=== PATIENT | female | born 1945 | race Hispanic/Latino ===

== ENCOUNTER 2018-06-26 09:19 | Outpatient (CLI) | payer MEDICARE | END 2018-06-26 09:20 | disposition home or self-care (01) | LOC: LAB 09:19 | PROVIDERS: ATTEND Internal Medicine | DX: E11.9 Type 2 diabetes mellitus without complications (principal); I10 Essential (primary) hypertension; E53.8 Deficiency of other specified B group vitamins; R53.1 Weakness; E78.5 Hyperlipidemia, unspecified; E78.00 Pure hypercholesterolemia, unspecified | CPT/HCPCS: 36415; 82607; 83036 ==

== ENCOUNTER 2018-11-18 08:48 | Outpatient (CLI) | payer MEDICARE ==
[2018-11-18 12:08] LABS: Chol/HDL Ratio 2.37 %
[2018-11-20 10:54] LABS: Vitamin D, 25-OH, D2 <4 ng/mL
== END 2018-11-18 08:49 | disposition home or self-care (01) ==
LOC: LAB 08:48
PROVIDERS: ATTEND Internal Medicine
DX: E11.9 Type 2 diabetes mellitus without complications (principal); E56.9 Vitamin deficiency, unspecified; E78.00 Pure hypercholesterolemia, unspecified; I10 Essential (primary) hypertension
CPT/HCPCS: 36415; 80061; 82306; 82607; 83036

== ENCOUNTER 2020-02-12 12:26 | Inpatient (IN) | payer MEDICARE ==
--- NOTE | 2020-02-12 13:26 | Event Note ---
ED Screening Note Date of service: 02/12/20 Time: 13:22 ED Screening Note: 74-year-old female presents to the emergency room for acute right lower quadrant abdominal pain with nausea no vomiting x3 days with pain getting worse. Patient denies any urinary symptoms. Denies any fever chills. This initial assessment/diagnostic orders/clinical plan/treatment(s) is/are subject to change based on patients health status, clinical progression and re- assessment by fellow clinical providers in the ED. Further treatment and workup at subsequent clinical providers discretion. Patient/guardian urged not to elope from the ED as their condition may be serious if not clinically assessed and managed. Initial orders include:
[2020-02-12 14:36] LABS: Basophils % (Auto) 0.2 % (0.0-1.8); Eosinophils # (Auto) 0.1 K/mm3 (0.0-0.4); Eosinophils % (Auto) 0.5 % (0.0-4.3); Hematocrit 35.4 % (30.3-42.9); Hemoglobin 12.3 gm/dl (10.1-14.3); Lymphocytes # (Auto) 1.9 K/mm3 (1.2-5.4); Lymphocytes % (Auto) 11.6 % (13.4-35.0); Mean Corpuscular HGB Conc 35 % (30-34); Mean Corpuscular Volume 91 fl (79-97); Monocytes # (Auto) 1.2 K/mm3 (0.0-0.8); Monocytes % (Auto) 7.5 % (0.0-7.3); Platelet Count 227 K/mm3 (140-440)
[2020-02-12 14:47] LABS: Alanine Aminotransferase 16 units/L (7-56); Albumin 3.9 g/dL (3.9-5); BUN/Creatinine Ratio 20; Blood Urea Nitrogen 16 mg/dL (7-17); Calcium 9.9 mg/dL (8.4-10.2); Hemolysis Index 15
[2020-02-12 14:47] LABS: HCG Qualitative,Urine Negative (Negative)
[2020-02-12] MEDS ORDERED: ONDANSETRON 4 MG/2 ML INJ IV ONE (14:54)
[2020-02-12] MEDS ORDERED: MORPHINE 4 MG/1 ML INJ IV ONE (14:54)
[2020-02-12] MEDS ORDERED: SODIUM CHLORIDE 0.9% 1000 ML 1,000 ML IV ONE (14:54)
--- NOTE | 2020-02-12 17:24 | Cat Scan Report ---
CT ABDOMEN AND PELVIS WITH CONTRAST INDICATION / CLINICAL INFORMATION: Right lower quadrant pain TECHNIQUE: Axial CT images were obtained through the abdomen and pelvis after IV contrast. All CT sc ans at this location are performed using CT dose reduction for ALARA by means of automated exposure c ontrol. COMPARISON: None available. FINDINGS: LOWER CHEST: Unremarkable LIVER: Unremarkable GALLBLADDER/BILIARY TREE: Cholecystectomy. PANCREAS: Unremarkable SPLEEN: Unremarkable ADRENALS: Unremarkable KIDNEYS / URETER: Unremarkable URINARY BLADDER: Unremarkable REPRODUCTIVE ORGANS: Uterus is absent. No significant adnexal abnormality. STOMACH / SMALL BOWEL: Stomach and small bowel are normal in caliber. No evidence of bowel inflammati on. COLON: There is mural thickening and pericolonic inflammatory stranding involving the cecum/ascending colon. Scattered sigmoid reticula without CT evidence of diverticulitis. The appendix is normal in c aliber. LYMPH NODES: No significant adenopathy. VASCULATURE: No significant abnormality. OTHER: No free air, free fluid, or focal fluid collection is identified. SKELETAL SYSTEM: Moderate scattered degenerative changes and scoliosis of the spine. No acute osseous findings. IMPRESSION: 1. Mural thickening and pericolonic inflammatory stranding involving the ascending colon, compatible with infectious or inflammatory colitis. 2. Other incidental findings as above. Signer Name: Yousuf Tay MD Signed: 02/12/2020 5:20 PM Workstation Name: [id number]
--- NOTE | 2020-02-12 18:02 | History and Physical Report ---
History of Present Illness Chief complaint: My stomach is hurting real bad History of present illness: 74 YO Female with HTN, HLD, DM presents to ED for evaluation. Patient states that she has experienced abdominal pain over the past 3 days with persistent symptoms over the same timeframe. Patient states that her pain is 9/10, constant, localized to the right lower quadrant, worsens with movement, relieved with nonmovement,. Patient knowledges nausea as well as anorexia. Patient transported to [facility] via private vehicle for further care and evaluation of the aforementioned symptoms. Patient seen and evaluated in the emergency department. All lab and imaging studies reviewed. Patient underwent CT scan of the abdomen and pelvis and was found to have evidence of colitis complicated by sepsis. Patient admitted to medical floor and initiated on sepsis protocol. GI team consult placed. Patient denies fever, chills, chest pain, palpitations, productive cough, skin rash, recent ill contacts, ingestion of food/water from new or different sources, or known exposure to COVID-19. Prior admission on 07/22/2017 reviewed. All medication listed at time of admission has been reconciled. Advanced care planning conducted in ED. Past History Past Medical History: diabetes, hypertension, hyperlipidemia, other (See HPI) Past Surgical History: hysterectomy, Other (Breast reduction surgery) Social history: . denies: smoking, alcohol abuse, prescription drug abuse Family history: diabetes, hypertension Medications and Allergies Allergies Allergy/AdvReac Type Severity Reaction Status Date / Time No Known Allergies Allergy Verified 02/12/20 12:52 Home Medications Medication Instructions Recorded Confirmed Last Taken Type Aspirin [Lo-Dose Aspirin EC] 81 mg PO DAILY 07/22/17 07/22/17 Unknown History AtorvaSTATin [Lipitor] 40 mg PO DAILY 07/22/17 07/22/17 Unknown History Metformin Xr (Nf) [Metformin ER 750 mg PO DAILY 07/22/17 07/22/17 Unknown History (Nf)] amLODIPine 10 mg PO DAILY 07/22/17 07/22/17 Unknown History Cephalexin [Keflex] 500 mg PO Q6HR #20 capsule 07/25/17 Unknown Rx oxyCODONE /ACETAMINOPHEN [Percocet 1 tab PO Q6HR PRN #10 tablet 07/25/17 Unknown Rx 5/325] Review of Systems Constitutional: no weight loss, no weight gain, no fever, no chills Ears, nose, mouth and throat: no ear pain, no ear discharge, no tinnitis, no decreased hearing, no nose pain, no nasal congestion Breasts: no change in shape, no swelling, no mass Cardiovascular: no chest pain, no orthopnea, no palpitations, no rapid/irregular heart beat, no edema, no syncope Respiratory: no cough, no cough with sputum, no hemoptysis, no shortness of breath Gastrointestinal: abdominal pain, nausea, no vomiting, no diarrhea, no coffee ground emesis, no BRBPR, no melena, no hematochezia Genitourinary Female: no pelvic pain, no flank pain, no menorrhagia, no dysuria, no urinary frequency, no urgency Rectal: no pain, no incontinence, no bleeding Musculoskeletal: no neck stiffness, no neck pain, no shooting arm pain, no arm numbness/tingling, no low back pain, no shooting leg pain Integumentary: no rash, no pruritis, no redness, no sores, no wounds Neurological: no head injury, no transient paralysis, no paralysis, no weakness, no parathesias, no tingling Psychiatric: no anxiety, no memory loss, no sleep disturbances, no hypersomnia, no change in appetite, no change in libido Endocrine: no cold intolerance, no polyphagia, no polydipsia, no excessive sweating Hematologic/Lymphatic: no easy bruising, no easy bleeding, no lymphedema Allergic/Immunologic: no allergic rhinitis, no wheezing, no persistent infections, no angioedema Exam - Constitutional Vitals: Temp Pulse Resp BP Pulse Ox 98.1 F 83 24 143/70 100 02/12/20 12:51 02/12/20 12:51 02/12/20 12:51 02/12/20 12:51 02/12/20 12:51 General appearance: Present: mild distress - EENT Eyes: Present: PERRL ENT: hearing intact, clear oral mucosa - Neck Neck: Present: supple, normal ROM - Respiratory Respiratory effort: normal Respiratory: bilateral: CTA - Cardiovascular Heart Sounds: Present: S1 & S2. Absent: rub, click - Extremities Extremities: pulses symmetrical, No edema Peripheral Pulses: within normal limits - Abdominal General gastrointestinal: Present: soft, tender, non-distended, normal bowel sounds Localized gastrointestinal: tender: RUQ, RLQ Female genitourinary: Present: normal - Rectal Rectal Exam: normal exam-external/orifice - Integumentary Integumentary: Present: clear, warm, dry - Musculoskeletal Musculoskeletal: gait normal, strength equal bilaterally - Psychiatric Psychiatric: appropriate mood/affect, intact judgment & insight - Neurologic Neurologic: CNII-XII intact, moves all extremities Results - Labs CBC & Chem 7: 02/12/20 14:06 02/12/20 14:06 Labs: Abnormal lab results 02/12/20 02/12/20 Range/Units 14:06 14:06 WBC 16.5 H (4.5-11.0) K/mm3 MCHC 35 H (30-34) % RDW 13.0 L (13.2-15.2) % Lymph % (Auto) 11.6 L (13.4-35.0) % [place] % (Auto) 7.5 H (0.0-7.3) % [place] # (Auto) 1.2 H (0.0-0.8) K/mm3 Seg Neutrophils % 80.2 H (40.0-70.0) % Seg Neutrophils # 13.2 H (1.8-7.7) K/mm3 Sodium 135 L (137-145) mmol/L Glucose 237 H (65-100) mg/dL Assessment and Plan - Patient Problems (1) Sepsis Current Visit: Yes Status: Acute Plan to address problem: Sepsis protocol: CT scan abdomen and pelvis, CBC, CMP, IV fluid resuscitation therapy, IV antibiotic therapy, serial abdominal exam, serial lactic acid level, monitor fluid balance, maintain mean arterial blood pressure greater than or equal to 65. (2) Infectious colitis Current Visit: Yes Status: Acute Plan to address problem: CT scan abdomen and pelvis, IV antibiotic therapy, supportive care. Gastroenterology team consult placed. (3) Abdominal pain Current Visit: No Status: Acute Qualifiers: Abdominal location: unspecified location Qualified Code(s): R10.9 - Unspecified abdominal pain Plan to address problem: CT scan abdomen and pelvis, IV antibiotic therapy, supportive care, serial physical exam, gastroenterology consult placed, pain control, supportive care. (4) Hypertension Current Visit: Yes Status: Acute Qualifiers: Hypertension type: essential hypertension Qualified Code(s): I10 - Ess ential (primary) hypertension Plan to address problem: Monitor blood pressure every shift, continue medical management (5) Diabetes Current Visit: Yes Status: Acute Plan to address problem: Sliding-scale insulin therapy, Accu-Chek, hypoglycemia protocol (6) Hyperlipidemia Current Visit: No Status: Acute Qualifiers: Hyperlipidemia type: mixed hyperlipidemia Qualified Code(s): E78.2 - Mixed hyperlipidemia Plan to address problem: Statin therapy, low-cholesterol diet. (7) DVT prophylaxis Current Visit: No Status: Acute Plan to address problem: SCD to bilateral lower extremities while in bed, patient is ambulatory. (8) Advance care planning Current Visit: Yes Status: Acute Plan to address problem: Disease education conducted, prognosis discussed, patient is full code, care plan discussed, patient knowledges understanding and agreement with care plan, +30 minutes.
[2020-02-12] MEDS ORDERED: ACETAMINOPHEN 325 MG TAB PO PRN ×2 (18:03)
[2020-02-12] MEDS ORDERED: SODIUM CHLORIDE 0.9% 1000 ML IV SOLN IV ONE (18:03)
[2020-02-12] MEDS ORDERED: ALBUTEROL 2.5 MG/3 ML NEBU IH PRN (18:03)
[2020-02-12] MEDS ORDERED: HYDROmorphone 1 MG/1 ML INJ IV PRN (18:03)
[2020-02-12] MEDS ORDERED: ONDANSETRON 4 MG/2 ML INJ IV PRN (18:03)
[2020-02-12] MEDS ORDERED: oxyCODONE /ACETAMINOPHEN 5-325MG TAB PO PRN (18:06)
[2020-02-12] MEDS ORDERED: DEXTROSE 50% IN WATER (25GM) 50 ML SYRINGE IV PRN (18:06)
--- NOTE | 2020-02-12 18:11 | Emergency Department Report ---
ED Abdominal Pain HPI - General Chief Complaint: Abdominal Pain Stated Complaint: LOWER ABD PAIN PUI?: No Time Seen by Provider: 02/12/20 14:52 Source: patient Mode of arrival: Ambulatory Limitations: No Limitations - History of Present Illness Initial Comments: CC: "I am worried about my appendix. HPI: This is a 74 yo female with hx of HTN, hyperlipidemia, DM who presents with 3 days of abdominal pain. Gradual onset. Hurts to move. Very tender to touch. NO radiation. Poor appetite. NO constipation. NO diarrhea. NO known sick contacts. Pain is 9 out of 10 in severity. Hx of cholecystectomy hypertension hysterectomy MD Complaint: abdominal pain -: Gradual, days(s) (3) Location: RLQ Radiation: none Severity: severe Severity scale (0 -10): 9 Quality: aching Consistency: constant Improves With: nothing Worsens With: movement Associated Symptoms: anorexia - Related Data Home Medications Medication Instructions Recorded Confirmed Last Taken Aspirin [Lo-Dose Aspirin EC] 81 mg PO DAILY 07/22/17 07/22/17 Unknown AtorvaSTATin [Lipitor] 40 mg PO DAILY 07/22/17 07/22/17 Unknown Metformin Xr (Nf) [Metformin ER 750 mg PO DAILY 07/22/17 07/22/17 Unknown (Nf)] amLODIPine 10 mg PO DAILY 07/22/17 07/22/17 Unknown Previous Rx's Medication Instructions Recorded Last Taken Type Cephalexin [Keflex] 500 mg PO Q6HR #20 capsule 07/25/17 Unknown Rx oxyCODONE /ACETAMINOPHEN [Percocet 1 tab PO Q6HR PRN #10 tablet 07/25/17 Unknown Rx 5/325] Allergies Allergy/AdvReac Type Severity Reaction Status Date / Time No Known Allergies Allergy Verified 02/12/20 12:52 ED Review of Systems ROS: Stated complaint: LOWER ABD PAIN Other details as noted in HPI Comment: All other systems reviewed and negative Constitutional: malaise. denies: chills, fever Respiratory: denies: cough, shortness of breath Cardiovascular: denies: chest pain Gastrointestinal: abdominal pain. denies: nausea, vomiting, diarrhea, constipation ED Past Medical Hx - Past Medical History Previous Medical History?: Yes Hx Hypertension: Yes Hx Heart Attack/AMI: No Hx Diabetes: Yes (TYPE 2) Hx Liver Disease: No Hx Renal Disease: No Hx Arthritis: Yes (OSTEO ARTHRITIS) Hx Seizures: No Hx Asthma: No Hx COPD: No Hx Dementia: No - Surgical History Hx Pacemaker: No Hx Internal Defibrillator: No Hx Cholecystectomy: Yes Additional Surgical History: breat reduction, hysterectomy - Social History Smoking Status: Never Smoker - Medications Home Medications: Home Medications Medication Instructions Recorded Confirmed Last Taken Type Aspirin [Lo-Dose Aspirin EC] 81 mg PO DAILY 07/22/17 07/22/17 Unknown History AtorvaSTATin [Lipitor] 40 mg PO DAILY 07/22/17 07/22/17 Unknown History Metformin Xr (Nf) [Metformin ER 750 mg PO DAILY 07/22/17 07/22/17 Unknown Histo ry (Nf)] amLODIPine 10 mg PO DAILY 07/22/17 07/22/17 Unknown History Cephalexin [Keflex] 500 mg PO Q6HR #20 capsule 07/25/17 Unknown Rx oxyCODONE /ACETAMINOPHEN [Percocet 1 tab PO Q6HR PRN #10 tablet 07/25/17 Unknown Rx 5/325] ED Physical Exam - General Limitations: No Limitations General appearance: alert, in no apparent distress, other (Guarding abdomen in severe pain) - Head Head exam: Present: atraumatic, normocephalic - Eye Eye exam: Present: normal appearance - ENT ENT exam: Present: mucous membranes moist - Neck Neck exam: Present: normal inspection, full ROM - Respiratory Respiratory exam: Present: normal lung sounds bilaterally. Absent: respiratory distress, wheezes, rales, rhonchi - Cardiovascular Cardiovascular Exam: Present: regular rate, normal rhythm, normal heart sounds. Absent: systolic murmur, diastolic murmur, rubs, gallop - GI/Abdominal GI/Abdominal exam: Present: soft, tenderness, guarding. Absent: distended, rebound - Extremities Exam Extremities exam: Present: normal inspection - Neurological Exam Neurological exam: Present: alert, oriented X3 - Psychiatric Psychiatric exam: Present: normal affect, normal mood - Skin Skin exam: Present: warm, dry, intact, normal color. Absent: rash ED Course Vital Signs 02/12/20 12:51 Temperature 98.1 F Pulse Rate 83 Respiratory 24 Rate Blood Pressure 143/70 O2 Sat by Pulse 100 Oximetry ED Medical Decision Making - Lab Data Result diagrams: 02/12/20 14:06 02/12/20 14:06 - Radiology Data Radiology results: report reviewed, image reviewed CT ABDOMEN AND PELVIS WITH CONTRAST INDICATION / CLINICAL INFORMATION: Right lower quadrant pain TECHNIQUE: Axial CT images were obtained through the abdomen and pelvis after IV contrast. All CT scans at this location are performed using CT dose reduction for ALARA by means of automated exposure control. COMPARISON: None available. FINDINGS: LOWER CHEST: Unremarkable LIVER: Unremarkable GALLBLADDER/BILIARY TREE: Cholecystectomy. PANCREAS: Unremarkable SPLEEN: Unremarkable ADRENALS: Unremarkable KIDNEYS / URETER: Unremarkable URINARY BLADDER: Unremarkable REPRODUCTIVE ORGANS: Uterus is absent. No significant adnexal abnormality. STOMACH / SMALL BOWEL: Stomach and small bowel are normal in caliber. No evidence of bowel inflammation. COLON: There is mural thickening and pericolonic inflammatory stranding involvin g the cecum/ascending colon. Scattered sigmoid reticula without CT evidence of diverticulitis. The appendix is normal in caliber. LYMPH NODES: No significant adenopathy. VASCULATURE: No significant abnormality. OTHER: No free air, free fluid, or focal fluid collection is identified. SKELETAL SYSTEM: Moderate scattered degenerative changes and scoliosis of the spine. No acute osseous findings. IMPRESSION: 1. Mural thickening and pericolonic inflammatory stranding involving the ascen ding colon, compatible with infectious or inflammatory colitis. 2. Other incidental findings as above. - Medical Decision Making Mrs. Low a 74-year-old female with history of hypertension hyperlipidemia diabetes mellitus or previous's surgical history including hysterectomy and cholecystectomy. Differential diagnosis includes appendicitis, ischemic colitis, infectious colitis renal colic. CT abdomen pelvis revealed appendix to be of normal caliber, inflammatory changes involving the ascending colon. Will admit patient for treatment for infectious colitis. Patient will require pain control as well as IV antibiotics. Considering distribution of the inflammation do not suspect ischemic colitis at this time. Critical care attestation.: If time is entered above; I have spent that time in minutes in the direct care of this critically ill patient, excluding procedure time. ED Disposition Clinical Impression: Acute abdominal pain in right lower quadrant, Infectious colitis Disposition: OP ADMIT IP TO THIS HOSP Is pt being admited?: Yes Does the pt Need Aspirin: No Condition: Stable Instructions: Abdominal Pain (ED)
[2020-02-12] MEDS ORDERED: SODIUM CHLORIDE 0.9% 1000 ML 2,000 ML ONE (19:35)
[2020-02-12] MEDS ORDERED: SODIUM CHLORIDE 0.9% 250ML 250 ML ONE (19:35)
[2020-02-12] MEDS ORDERED: HYDROmorphone 1 MG/1 ML INJ ONE (20:37)
[2020-02-12] MEDS: CEFEPIME/NS 2 GM/100 ML 2 GM/100 ML BAG IV SCH (22:41)
[2020-02-12] MEDS: metroNIDAZOLE/NS 500 MG/100 ML 500 MG/100 ML BAG IV SCH (22:41)
[2020-02-12] MEDS: INSULIN LISPRO 100 UNIT/ML VIAL 3 mL SUB-Q SCH (23:11)
[2020-02-13] MEDS: CEFEPIME/NS 2 GM/100 ML 2 GM/100 ML BAG IV SCH ×3 (05:36→22:21)
[2020-02-13] MEDS: metroNIDAZOLE/NS 500 MG/100 ML 500 MG/100 ML BAG IV SCH ×3 (05:36→23:32)
[2020-02-13 06:24] LABS: Basophils % (Auto) 0.3 % (0.0-1.8); Eosinophils # (Auto) 0.2 K/mm3 (0.0-0.4); Eosinophils % (Auto) 1.8 % (0.0-4.3); Hematocrit 33.2 % (30.3-42.9); Hemoglobin 11.5 gm/dl (10.1-14.3); Lymphocytes # (Auto) 2.1 K/mm3 (1.2-5.4); Lymphocytes % (Auto) 17.5 % (13.4-35.0); Mean Corpuscular HGB Conc 35 % (30-34); Mean Corpuscular Volume 91 fl (79-97); Monocytes # (Auto) 0.9 K/mm3 (0.0-0.8); Monocytes % (Auto) 7.3 % (0.0-7.3); Platelet Count 194 K/mm3 (140-440); Red Blood Count 3.66 M/mm3 (3.65-5.03); Red Cell Distribution Width 13.1 % (13.2-15.2)
[2020-02-13 06:35] LABS: Alanine Aminotransferase 13 units/L (7-56); Albumin 3.6 g/dL (3.9-5); Blood Urea Nitrogen 10 mg/dL (7-17); Calcium 9.1 mg/dL (8.4-10.2); Hemolysis Index 0
[2020-02-13 06:38] LABS: BUN/Creatinine Ratio 14
[2020-02-13] MEDS: INSULIN LISPRO 100 UNIT/ML VIAL 3 mL SUB-Q SCH ×4 (09:32→22:00)
--- NOTE | 2020-02-13 12:33 | Gastroenterology Consultation ---
History of Present Illness - Reason for Consult Consult date: 02/13/20 abdominal pain Requesting physician: DANIELA WHITT - History of Present Illness The patient is a 74 yo wf who presents with abd pain. pt reports new onset rlq abd pain x 4 days. No prior similar symptoms. Pain worse with movement/positional change. chronic constipation which is unchanged (last bm 2- 3 days ago). Denies hematochezia. CT scan showed signs of right sided colitis. Denies sick contacts, recent abx use; states he drinks a lot of soda/diet coke daily and has had minimal water intake recently. Last colonoscopy over 5-10 years ago. Past History Past Medical History: diabetes, hypertension, hyperlipidemia, other (See HPI) Past Surgical History: hysterectomy, Other (Breast reduction surgery) Social history: . denies: smoking, alcohol abuse, prescription drug abuse Family history: diabetes, hypertension Medications and Allergies Allergies Allergy/AdvReac Type Severity Reaction Status Date / Time No Known Allergies Allergy Verified 02/12/20 12:52 Home Medications Medication Instructions Recorded Confirmed Last Taken Type Aspirin [Lo-Dose Aspirin EC] 81 mg PO DAILY 07/22/17 07/22/17 Unknown History AtorvaSTATin [Lipitor] 40 mg PO DAILY 07/22/17 07/22/17 Unknown History Metformin Xr (Nf) [Metformin ER 750 mg PO DAILY 07/22/17 07/22/17 Unknown History (Nf)] amLODIPine 10 mg PO DAILY 07/22/17 07/22/17 Unknown History Cephalexin [Keflex] 500 mg PO Q6HR #20 capsule 07/25/17 Unknown Rx oxyCODONE /ACETAMINOPHEN [Percocet 1 tab PO Q6HR PRN #10 tablet 07/25/17 Unknown Rx 5/325] Active Meds: Active Medications Acetaminophen (Tylenol) 650 mg PO Q4H PRN PRN Reason: Pain MILD(1-3)/Fever >100.5/GARCIA Albuterol (Proventil) 2.5 mg IH Q4HRT PRN PRN Reason: Shortness Of Breath Amlodipine Besylate (Amlodipine) 10 mg PO DAILY PHOEBE Aspirin (Halfprin Ec) 81 mg PO DAILY PHOEBE Atorvastatin Calcium (Lipitor) 40 mg PO DAILY PHOEBE Dextrose (D50w (25gm) Syringe) 50 ml IV Q30MIN PRN; Protocol PRN Reason: Hypoglycemia Hydromorphone HCl (Dilaudid) 0.25 mg IV Q4H PRN PRN Reason: Pain, Moderate (4-6) Last Admin: 02/12/20 20:40 Dose: 0.25 mg Documented by: Cefepime HCl (Cefepime/Ns 2 Gm/100 Ml) 2 gm in 100 mls @ 200 mls/hr IV Q8HR PHOEBE; Protocol Last Admin: 02/13/20 05:36 Dose: 200 mls/hr Documented by: Metronidazole (Flagyl 500 Mg/100 Ml) 500 mg in 100 mls @ 100 mls/hr IV Q8HR PHOEBE; Protocol Last Admin: 02/13/20 05:36 Dose: 100 mls/hr Documented by: Insulin Human Lispro (Humalog) 0 unit SUB-Q ACHS PHOEBE; Protocol Last Admin: 02/13/20 09:32 Dose: Not Given Documented by: Ondansetron HCl (Zofran) 4 mg IV Q8H PRN PRN Reason: Nausea And Vomiting Oxycodone/Acetaminophen (Percocet 5/325) 1 tab PO Q6HR PRN PRN Reason: PAIN Sodium Chloride (Sodium Chloride Flush Syringe 10 Ml) 10 ml IV BID [facility] Last Admin: 02/12/20 22:41 Dose: 10 ml Documented by: Sodium Chloride (Sodium Chloride Flush Syringe 10 Ml) 10 ml IV PRN PRN PRN Reason: LINE FLUSH Reviewed/updated patient's home and current medications Review of Systems - Review of Systems All systems: negative (per HPI) Exam - Constitutional Vital Signs: Temp Pulse Resp BP Pulse Ox 98.7 F 68 17 140/61 94 02/13/20 05:45 02/13/20 05:45 02/13/20 05:45 02/13/20 05:45 02/13/20 08:55 General appearance: no acute distress - Neck Neck: supple, normal ROM - Respiratory Respiratory effort: normal Respiratory: bilateral: CTA - Cardiovascular Rhythm: regular Heart Sounds: Present: S1 & S2 - Gastrointestinal General gastrointestinal: Present: soft, tender (+ rlq ttp), non-distended - Integumentary Integumentary: Present: clear, warm - Neurologic Neurological: alert and oriented x3 - Psychiatric Psychiatric: appropriate mood/affect - Labs CBC & Chem 7: 02/13/20 05:14 02/13/20 05:14 Lab Results: Laboratory Results - last 24 hr 02/12/20 02/12/20 02/12/20 13:32 14:06 14:06 WBC 16.5 H RBC 3.90 Hgb 12.3 Hct 35.4 MCV 91 MCH 32 MCHC 35 H RDW 13.0 L Plt Count 227 Lymph % (Auto) 11.6 L [place] % (Auto) 7.5 H Eos % (Auto) 0.5 Baso % (Auto) 0.2 Lymph # (Auto) 1.9 [place] # (Auto) 1.2 H Eos # (Auto) 0.1 Baso # (Auto) 0.0 Seg Neutrophils % 80.2 H Seg Neutrophils # 13.2 H Sodium 135 L Potassium 3.8 Chloride 100.0 Carbon Dioxide 26 Anion Gap 13 BUN 16 Creatinine 0.8 Estimated GFR > 60 BUN/Creatinine Ratio 20 Glucose 237 H POC Glucose Lactic Acid Calcium 9.9 Total Bilirubin 1.10 AST 14 ALT 16 Alkaline Phosphatase 70 Total Protein 7.1 Albumin 3.9 Albumin/Globulin Ratio 1.2 Urine HCG, Qual Negative Blood Type Antibody Screen 02/12/20 02/12/20 02/12/20 18:16 18:16 23:01 WBC RBC Hgb Hct MCV MCH MCHC RDW Plt Count Lymph % (Auto) [place] % (Auto) Eos % (Auto) Baso % (Auto) Lymph # (Auto) [place] # (Auto) Eos # (Auto) Baso # (Auto) Seg Neutrophils % Seg Neutrophils # Sodium Potassium Chloride Carbon Dioxide Anion Gap BUN Creatinine Estimated GFR BUN/Creatinine Ratio Glucose POC Glucose 173 H Lactic Acid 0.90 Calcium Total Bilirubin AST ALT Alkaline Phosphatase Total Protein Albumin Albumin/Globulin Ratio Urine HCG, Qual Blood Type B NEGATIVE Antibody Screen Negative 02/12/20 02/13/20 02/13/20 23:14 05:14 05:14 WBC 12.2 H RBC 3.66 Hgb 11.5 Hct 33.2 MCV 91 MCH 31 MCHC 35 H RDW 13.1 L Plt Count 194 Lymph % (Auto) 17.5 [place] % (Auto) 7.3 Eos % (Auto) 1.8 Baso % (Auto) 0.3 Lymph # (Auto) 2.1 [place] # (Auto) 0.9 H Eos # (Auto) 0.2 Baso # (Auto) 0.0 Seg Neutrophils % 73.1 H Seg Neutrophils # 8.9 H Sodium Potassium Chloride Carbon Dioxide Anion Gap BUN Creatinine Estimated GFR BUN/Creatinine Ratio Glucose POC Glucose Lactic Acid 0.80 1.00 Calcium Total Bilirubin AST ALT Alkaline Phosphatase Total Protein Albumin Albumin/Globulin Ratio Urine HCG, Qual Blood Type Antibody Screen 02/13/20 02/13/20 02/13/20 05:14 07:37 11:16 WBC RBC Hgb Hct MCV MCH MCHC RDW Plt Count Lymph % (Auto) [place] % (Auto) Eos % (Auto) Baso % (Auto) Lymph # (Auto) [place] # (Auto) Eos # (Auto) Baso # (Auto) Seg Neutrophils % Seg Neutrophils # Sodium 137 Potassium 4.0 Chloride 105.3 Carbon Dioxide 22 Anion Gap 14 BUN 10 Creatinine 0.7 Estimated GFR > 60 BUN/Creatinine Ratio 14 Glucose 165 H POC Glucose 150 H 136 H Lactic Acid Calcium 9.1 Total Bilirubin 1.00 AST 12 ALT 13 Alkaline Phosphatase 64 Total Protein 6.4 Albumin 3.6 L Albumin/Globulin Ratio 1.3 Urine HCG, Qual Blood Type Antibody Screen - Imaging CT Scan: report reviewed Assessment and Plan 1. Abdominal pain/colitis - new onset abd pain with right sided colitis on ct scan. ddx includes ischemic colitis (favor this), infectious etiology, less likely ibd given acute onset. normal lactate. in setting of possible isolated right sided ischemic colitis and persistent severe sx's, will obtain CTA scan to r/o vascular abnormalities. cont supportive care and empiric abx.
[2020-02-13] MEDS: ASPIRIN EC 81 MG TAB PO SCH (15:57)
[2020-02-13] MEDS: amLODIPine 10 MG TAB PO SCH (15:57)
--- NOTE | 2020-02-13 16:10 | Progress Note ---
Assessment and Plan (1) Sepsis Current Visit: Yes Status: Acute Plan to address problem: Sepsis protocol: CT scan abdomen and pelvis, CBC, CMP, IV fluid resuscitation therapy, IV antibiotic therapy, serial abdominal exam, serial lactic acid level, monitor fluid balance, maintain mean arterial blood pressure greater than or equal to 65. (2) Infectious colitis Current Visit: Yes Status: Acute Plan to address problem: CT scan abdomen and pelvis, IV antibiotic therapy, supportive care. Gastroenterology team consult placed. Ischemic colitis versus infectious colitis CT angiogram of the abdomen ordered (3) Abdominal pain Current Visit: No Status: Acute Qualifiers: Abdominal location: unspecified location Qualified Code(s): R10.9 - Unspecified abdominal pain Plan to address problem: CT scan abdomen and pelvis, IV antibiotic therapy, supportive care, serial physical exam, gastroenterology consult placed, pain control, supportive care. (4) Hypertension Current Visit: Yes Status: Acute Qualifiers: Hypertension type: essential hypertension Qualified Code(s): I10 - Essential (primary) hypertension Plan to address problem: Monitor blood pressure every shift, continue medical management (5) Diabetes Current Visit: Yes Status: Acute Plan to address problem: Sliding-scale insulin therapy, Accu-Chek, hypoglycemia protocol (6) Hyperlipidemia Current Visit: No Status: Acute Qualifiers: Hyperlipidemia type: mixed hyperlipidemia Qualified Code(s): E78.2 - Mixed hyperlipidemia Plan to address problem: Statin therapy, low-cholesterol diet. (7) DVT prophylaxis Current Visit: No Status: Acute Plan to address problem: SCD to bilateral lower extremities while in bed, patient is ambulatory. (8) Advance care planning Current Visit: Yes Status: Acute Plan to address problem: Disease education conducted, prognosis discussed, patient is full code, care plan discussed, patient knowledges understanding and agreement with care plan, +30 minutes. Subjective Date of service: 02/13/20 Principal diagnosis: Colitis Interval history: 74 YO Female with HTN, HLD, DM presents to ED for evaluation. Patient states that she has experienced abdominal pain over the past 3 days with persistent symptoms over the same timeframe. Patient states that her pain is 9/10, constant, localized to the right lower quadrant, worsens with movement, relieved with nonmovement,. Patient knowledges nausea as well as anorexia. Patient transported to [facility] via private vehicle for further care and evaluation of the aforementioned symptoms. Patient seen and evaluated in the emergency department. All lab and imaging studies reviewed. Patient underwent CT scan of the abdomen and pelvis and was found to have evidence of colitis complicated by sepsis. Patient admitted to medical floor and initiated on sepsis protocol. GI team consult placed. Patient denies fever, chills, chest pain, palpitations, productive cough, skin rash, recent ill contacts, ingestion of food/water from new or different sources, or known exposure to COVID-19. Prior admission on 07/22/2017 reviewed. All medication listed at time of admission has been reconciled. Advanced care planning conducted in ED. 02/13/2020 Patient continues to have right lower quadrant pain Pain is slightly better compared to yesterday Objective - Constitutional Vitals: Vital Signs - 12hr 02/13/20 02/13/20 02/13/20 05:45 08:55 13:28 Temperature 98.7 F 99.0 F Pulse Rate 68 60 Respiratory 17 18 Rate Blood Pressure 140/61 142/49 O2 Sat by Pulse 89 94 95 Oximetry General appearance: Present: no acute distress, well-nourished - EENT Eyes: PERRL, EOM intact ENT: hearing intact, clear oral mucosa Ears: bilateral: normal - Neck Neck: supple, normal ROM - Respiratory Respiratory effort: normal Respiratory: bilateral: CTA - Breasts Breasts: normal - Cardiovascular Heart rate: 78 Rhythm: regular Heart Sounds: Present: S1 & S2. Absent: gallop, rub Extremities: no ischemia, pulses intact, No edema, normal color, Full ROM - Gastrointestinal General gastrointestinal: Present: soft, tender (Right lower quadrant tenderness), non-distended, normal bowel sounds Localized gastrointestinal: tender: RLQ, guarding: RLQ, rebound: RLQ Rectal Exam: stool brown - Genitourinary Female genitourinary: normal - Integumentary Integumentary: clear, warm, dry - Musculoskeletal Musculoskeletal: 1, strength equal bilaterally - Neurologic Neurologic: moves all extremities - Psychiatric Psychiatric: memory intact, appropriate mood/affect, intact judgment & insight - Labs CBC & Chem 7: 02/13/20 05:14 02/13/20 05:14 Labs: Abnormal lab results 02/12/20 02/13/20 02/13/20 Range/Units 23:01 05:14 05:14 WBC 12.2 H (4.5-11.0) K/mm3 MCHC 35 H (30-34) % RDW 13.1 L (13.2-15.2) % [place] # (Auto) 0.9 H (0.0-0.8) K/mm3 Seg Neutrophils % 73.1 H (40.0-70.0) % Seg Neutrophils # 8.9 H (1.8-7.7) K/mm3 Glucose 165 H (65-100) mg/dL POC Glucose 173 H (70-105) mg/dL Albumin 3.6 L (3.9-5) g/dL 02/13/20 02/13/20 02/13/20 Range/Units 07:37 11:16 15:51 WBC (4.5-11.0) K/mm3 MCHC (30-34) % RDW (13.2-15.2) % [place] # (Auto) (0.0-0.8) K/mm3 Seg Neutrophils % (40.0-70.0) % Seg Neutrophils # (1.8-7.7) K/mm3 Glucose (65-100) mg/dL POC Glucose 150 H 136 H 126 H (70-105) mg/dL Albumin (3.9-5) g/dL
[2020-02-14] MEDS: metroNIDAZOLE/NS 500 MG/100 ML 500 MG/100 ML BAG IV SCH ×3 (06:00→22:32)
[2020-02-14] MEDS: CEFEPIME/NS 2 GM/100 ML 2 GM/100 ML BAG IV SCH ×3 (06:00→22:24)
[2020-02-14] MEDS: ASPIRIN EC 81 MG TAB PO SCH ×2 (08:36→10:41)
[2020-02-14] MEDS: amLODIPine 10 MG TAB PO SCH ×2 (08:36→10:41)
[2020-02-14] MEDS: INSULIN LISPRO 100 UNIT/ML VIAL 3 mL SUB-Q SCH ×4 (08:52→22:26)
--- NOTE | 2020-02-14 11:33 | Cat Scan Report ---
CTA ABDOMEN AND PELVIS WITH IV CONTRAST INDICATION / CLINICAL INFORMATION: MAIN. Abdominal pain with right-sided colitis. Possible ischemic colitis TECHNIQUE: Axial CT images were obtained through the abdomen and pelvis before and after after injection of IV c ontrast. 3 plane MIP / 3D reconstructions were produced. All CT scans at this location are performed using CT dose reduction for ALARA by means of automated exposure control. Any percent stenosis measur ements are based on criteria similar to NASCET. COMPARISON: 02/12/2020. FINDINGS: Scattered calcified and noncalcified atherosclerotic plaques are noted throughout the visualized brian rial structures without evidence of hemodynamically significant stenosis. Aorta: No significant abnormality. Renal arteries: No significant abnormality. Celiac artery: No significant abnormality. Specifically no evidence of intraluminal filling defects o r acute abnormality. Superior Mesenteric Artery: No significant abnormality. Specifically, no evidence of intraluminal alek ling defects or acute abnormality. Inferior mesenteric artery: No significant abnormality. Specifically, no evidence of intraluminal alek ling defects or acute abnormality. Right Iliac Arteries: No significant abnormality.. Left Iliac Arteries: No significant abnormality.. Additional Findings: Persistent inflammatory changes with mural thickening and pericolonic fat strand ing noted of the colon in the right lower quadrant abdomen. Cholecystectomy is again noted. Colonic d iverticulosis is again noted. Bilateral fat-containing inguinal hernias. Skeletal Structures: Diffuse osteopenia is noted. Multilevel degenerative changes are noted of the sp ine retrolisthesis at the L1-L2 level with associated endplate sclerosis. No aggressive osseous lesio ns. IMPRESSION: 1. Persistent findings in the right colon consistent with infectious/inflammatory colitis have not si gnificantly changed since prior exam. There is no evidence of intraluminal filling defects or acute a bnormality to the vascular structures to suggest ischemic colitis. Signer Name: Mando Orozco MD Signed: 02/14/2020 11:29 AM Workstation Name: [id number]
--- NOTE | 2020-02-14 13:37 | Gastroenterology Progress Note ---
Assessment and Plan 1. Abd pain with right sided colitis on imaging - CTA without signs of mesenteric ischemia. sx's improved. start clears and advance as tolerated. complete course of empiric abx (cipro/flagyl). possible d/c tomorrow if tolerating po with no new symptoms. Subjective Date of service: 02/14/20 Principal diagnosis: abd pain, right sided colitis Interval history: pt seen and examined; abd pain has improved. still sore but overall much better since yesterday Objective - Constitutional Vitals: Temp Pulse Resp BP Pulse Ox 97.7 F 64 16 124/54 94 02/14/20 06:07 02/14/20 08:36 02/14/20 06:07 02/14/20 08:36 02/14/20 09:34 General appearance: no acute distress - Respiratory Respiratory effort: normal Respiratory: bilateral: CTA - Cardiovascular Rhythm: regular Heart Sounds: Present: S1 & S2 - Gastrointestinal General gastrointestinal: Present: soft, tender, non-distended - Labs CBC & Chem 7: 02/13/20 05:14 02/13/20 05:14 Labs: Laboratory Results - last 24 hr 02/13/20 02/13/20 02/14/20 15:51 23:04 07:25 POC Glucose 126 H 120 H 126 H 02/14/20 12:25 POC Glucose 128 H
--- NOTE | 2020-02-14 22:33 | Progress Note ---
Assessment and Plan (1) Sepsis Current Visit: Yes Status: Acute Plan to address problem: Sepsis protocol: CT scan abdomen and pelvis, CBC, CMP, IV fluid resuscitation therapy, IV antibiotic therapy, serial abdominal exam, serial lactic acid level, monitor fluid balance, maintain mean arterial blood pressure greater than or equal to 65. (2) Infectious colitis Current Visit: Yes Status: Acute Plan to address problem: CT scan abdomen and pelvis, IV antibiotic therapy, supportive care. Gastroenterology team consult placed. CT angiogram of the abdomen negative We will treat as infectious colitis (3) Abdominal pain Current Visit: No Status: Acute Qualifiers: Abdominal location: unspecified location Qualified Code(s): R10.9 - Unspecified abdominal pain Plan to address problem: CT scan abdomen and pelvis, IV antibiotic therapy, supportive care, serial physical exam, gastroenterology consult placed, pain control, supportive care. (4) Hypertension Current Visit: Yes Status: Acute Qualifiers: Hypertension type: essential hypertension Qualified Code(s): I10 - Essential (primary) hypertension Plan to address problem: Monitor blood pressure every shift, continue medical management (5) Diabetes Current Visit: Yes Status: Acute Plan to address problem: Sliding-scale insulin therapy, Accu-Chek, hypoglycemia protocol (6) Hyperlipidemia Current Visit: No Status: Acute Qualifiers: Hyperlipidemia type: mixed hyperlipidemia Qualified Code(s): E78.2 - Mixed hyperlipidemia Plan to address problem: Statin therapy, low-cholesterol diet. (7) DVT prophylaxis Current Visit: No Status: Acute Plan to address problem: SCD to bilateral lower extremities while in bed, patient is ambulatory. (8) Advance care planning Current Visit: Yes Status: Acute Plan to address problem: Disease education conducted, prognosis discussed, patient is full code, care plan discussed, patient knowledges understanding and agreement with care plan, +30 minutes. Subjective Date of service: 02/14/20 Principal diagnosis: abd pain, right sided colitis Interval history: 74 YO Female with HTN, HLD, DM presents to ED for evaluation. Patient states that she has experienced abdominal pain over the past 3 days with persistent symptoms over the same timeframe. Patient states that her pain is 9/10, constant, localized to the right lower quadrant, worsens with movement, relieved with nonmovement,. Patient knowledges nausea as well as anorexia. Patient transported to [facility] via private vehicle for further care and evaluation of the aforementioned symptoms. Patient seen and evaluated in the emergency department. All lab and imaging studies reviewed. Patient underwent CT scan of the abdomen and pelvis and was found to have evidence of colitis complicated by sepsis. Patient admitted to medical floor and initiated on sepsis protocol. GI team consult placed. Patient denies fever, chills, chest pain, palpitations, productive cough, skin rash, recent ill contacts, ingestion of food/water from new or different sources, or known exposure to COVID-19. Prior admission on 07/22/2017 reviewed. All medication listed at time of admission has been reconciled. Advanced care planning conducted in ED. 02/13/2020 Patient continues to have right lower quadrant pain Pain is slightly better compared to yesterday 02/14/2020 Right lower quadrant pain much better CT angiogram of the abdomen does not show any ischemia Objective - Constitutional Vitals: Vital Signs - 12hr 02/14/20 02/14/20 02/14/20 11:40 15:02 20:55 Temperature 98.5 F 98.5 F Pulse Rate 71 76 Respiratory 16 18 Rate Blood Pressure 164/63 169/67 O2 Sat by Pulse 96 97 100 Oximetry General appearance: Present: no acute distress, well-nourished - EENT Eyes: PERRL, EOM intact ENT: hearing intact, clear oral mucosa Ears: bilateral: normal - Neck Neck: supple, normal ROM - Respiratory Respiratory effort: normal Respiratory: bilateral: CTA - Breasts Breasts: normal - Cardiovascular Heart rate: 78 Rhythm: regular Heart Sounds: Present: S1 & S2. Absent: gallop, rub Extremities: pulses intact, No edema, normal color, Full ROM - Gastrointestinal General gastrointestinal: Present: soft, tender, non-distended, normal bowel sounds Localized gastrointestinal: tender: RLQ (Tenderness improved) - Genitourinary Female genitourinary: normal - Integumentary Integumentary: clear, warm, dry - Musculoskeletal Musculoskeletal: 1, strength equal bilaterally - Neurologic Neurologic: moves all extremities - Psychiatric Psychiatric: memory intact, appropriate mood/affect, intact judgment & insight - Allied health notes Allied health notes reviewed: nursing, case management - Labs CBC & Chem 7: 02/13/20 05:14 02/13/20 05:14 Labs: Abnormal lab results 02/13/20 02/14/20 02/14/20 Range/Units 23:04 07:25 12:25 POC Glucose 120 H 126 H 128 H (70-105) mg/dL 02/14/20 Range/Units 15:35 POC Glucose 177 H (70-105) mg/dL
[2020-02-15] MEDS: CEFEPIME/NS 2 GM/100 ML 2 GM/100 ML BAG IV SCH (05:07)
[2020-02-15] MEDS: metroNIDAZOLE/NS 500 MG/100 ML 500 MG/100 ML BAG IV SCH (05:14)
[2020-02-15] MEDS: INSULIN LISPRO 100 UNIT/ML VIAL 3 mL SUB-Q SCH (08:14)
[2020-02-15] MEDS: ASPIRIN EC 81 MG TAB PO SCH (09:09)
[2020-02-15] MEDS: amLODIPine 10 MG TAB PO SCH (09:09)
--- NOTE | 2020-02-15 09:49 | Discharge Summary ---
Providers - Providers Date of Admission: 02/12/20 18:03 Date of discharge: 02/15/20 Attending physician: DANIELA WHITT 02/13/20 08:00 Consult to Physician [CONS] Routine Comment: Consulting Provider: VALENTÍN ABLLARD Physician Instructions: Reason For Exam: colitis Primary care physician: JODI SLADE Hospitalization Condition: Stable Hospital course: Subjective 1 Date of service: 02/15/20 Principal diagnosis: abd pain, right sided colitis Interval history: 74 YO Female with HTN, HLD, DM presents to ED for evaluation. Patient states that she has experienced abdominal pain over the past 3 days with persistent symptoms over the same timeframe. Patient states that her pain is 9/10, constant, localized to the right lower quadrant, worsens with movement, relieved with nonmovement,. Patient knowledges nausea as well as anorexia. Patient transported to [facility] via private vehicle for further care and evaluation of the aforementioned symptoms. Patient seen and evaluated in the emergency department. All lab and imaging studies reviewed. Patient underwent CT scan of the abdomen and pelvis and was found to have evidence of colitis complicated by sepsis. Patient admitted to medical floor and initiated on sepsis protocol. GI team consult placed. Patient denies fever, chills, chest pain, palpitations, productive cough, skin rash, recent ill contacts, ingestion of food/water from new or different sources, or known exposure to COVID-19. Prior admission on 07/22/2017 reviewed. All medication listed at time of admission has been reconciled. Advanced care planning conducted in ED. 02/13/2020 Patient continues to have right lower quadrant pain Pain is slightly better compared to yesterday 02/14/2020 Right lower quadrant pain much better CT angiogram of the abdomen does not show any ischemia 02/15/2020 Patient symptomatically much better (1) Sepsis Current Visit: Yes Status: Acute Plan to address problem: Sepsis protocol: CT scan abdomen and pelvis, CBC, CMP, IV fluid resuscitation therapy, IV antibiotic therapy, serial abdominal exam, serial lactic acid level, monitor fluid balance, maintain mean arterial blood pressure greater than or equal to 65. (2) Infectious colitis Current Visit: Yes Status: Acute Plan to address problem: CT scan abdomen and pelvis, IV antibiotic therapy, supportive care. Gastroenterology team consult placed. CT angiogram of the abdomen negative We will treat as infectious colitis From GI ". Abd pain with right sided colitis on imaging - CTA without signs of vascular thrombosis/mesenteric ischemia. abd sx's significantly improved. tolerating po. complete course of abx, okay to d/c from gi stand point. f/u in GI clinic in 2-3 weeks and will need outpatient colonoscopy. discussed with pt." Patient being discharged on Cipro and Flagyl. Cipro 500 twice daily for 8 days and Flagyl 503 times a day for 7 days. Patient to follow-up with GI Dr. De La Rosa in clinic. In 1 to 2 weeks. Patient to return to emergency room if symptoms recur or become worse. (3) Abdominal pain Current Visit: No Status: Acute Qualifiers: Abdominal location: unspecified location Qualified Code(s): R10.9 - Unspecified abdominal pain Plan to address problem: CT scan abdomen and pelvis, IV antibiotic therapy, supportive care, serial physical exam, gastroenterology consult placed, pain control, supportive care. (4) Hypertension Current Visit: Yes Status: Acute Qualifiers: Hypertension type: essential hypertension Qualified Code(s): I10 - Essential (primary) hypertension Plan to address problem: Monitor blood pressure every shift, continue medical management (5) Diabetes Current Visit: Yes Status: Acute Plan to address problem: Sliding-scale insulin therapy, Accu-Chek, hypoglycemia protocol (6) Hyperlipidemia Current Visit: No Status: Acute Qualifiers: Hyperlipidemia type: mixed hyperlipidemia Qualified Code(s): E78.2 - Mixed hyperlipidemia Plan to address problem: Statin therapy, low-cholesterol diet. (7) DVT prophylaxis Current Visit: No Status: Acute Plan to address problem: SCD to bilateral lower extremities while in bed, patient is ambulatory. (8) Advance care planning Current Visit: Yes Status: Acute Plan to address problem: Disease education conducted, prognosis discussed, patient is full code, care plan discussed, patient knowledges understanding and agreement with care plan, +30 minutes. Disposition: DC- TO HOME OR SELFCARE Time spent for discharge: 35 minutes - Discharge Diagnoses (1) Hypertension Status: Acute Qualifiers: Hypertension type: essential hypertension Qualified Code(s): I10 - Essential (primary) hypertension (2) Infectious colitis Status: Acute (3) Sepsis Status: Acute (4) T2DM (type 2 diabetes mellitus) Status: Chronic Comment: Continue home medications Core Measure Documentation - Palliative Care Palliative Care/ Comfort Measures: Not Applicable - Core Measures Any of the following diagnoses?: none Exam - Constitutional Vitals: Temp Pulse Resp BP Pulse Ox 98.5 F 81 18 147/70 100 02/14/20 15:02 02/15/20 09:09 02/14/20 15:02 02/15/20 09:09 02/14/20 20:55 General appearance: Present: no acute distress, well-nourished - EENT Eyes: Present: PERRL ENT: hearing intact, clear oral mucosa - Neck Neck: Present: supple, normal ROM - Respiratory Respiratory effort: normal Respiratory: bilateral: CTA - Cardiovascular Heart rate: 78 Rhythm: regular Heart Sounds: Present: S1 & S2. Absent: rub, click - Extremities Extremities: no ischemia, pulses symmetrical, No edema Peripheral Pulses: within normal limits - Abdominal General gastrointestinal: Present: soft, non-tender, non-distended, normal bowel sounds Female genitourinary: Present: normal - Integumentary Integumentary: Present: clear, warm, dry - Musculoskeletal Musculoskeletal: gait normal, strength equal bilaterally - Psychiatric Psychiatric: appropriate mood/affect, intact judgment & insight - Neurologic Neurologic: CNII-XII intact, moves all extremities - Allied Health Allied health notes reviewed: nursing Plan Activity: no restrictions Diet: diabetic Follow up with: JOID SLADE MD [Primary Care Provider] - 7 Days DENNIS CHACON MD [Staff Physician] - 7 Days RAYMOND DE LA ROSA MD [Staff Physician] - 7 Days Prescriptions: Ciprofloxacin HCl [Ciprofloxacin TAB] 500 mg PO Q12HR #16 tab metroNIDAZOLE [Flagyl] 500 mg PO Q8HR #21 tablet
--- NOTE | 2020-02-15 10:02 | Gastroenterology Progress Note ---
Assessment and Plan 1. Abd pain with right sided colitis on imaging - CTA without signs of vascular thrombosis/mesenteric ischemia. abd sx's significantly improved. tolerating po. complete course of abx, okay to d/c from gi stand point. f/u in GI clinic in 2-3 weeks and will need outpatient colonoscopy. discussed with pt. Subjective Date of service: 02/15/20 Principal diagnosis: abd pain, right sided colitis Interval history: pt reports abd pain has mostly resolved. tolerating diet Objective - Constitutional Vitals: Temp Pulse Resp BP Pulse Ox 98.5 F 81 18 147/70 100 02/14/20 15:02 02/15/20 09:09 02/14/20 15:02 02/15/20 09:09 02/14/20 20:55 General appearance: no acute distress - Respiratory Respiratory effort: normal Respiratory: bilateral: CTA - Cardiovascular Rhythm: regular Heart Sounds: Present: S1 & S2 - Gastrointestinal General gastrointestinal: Present: soft, non-tender, non-distended - Labs CBC & Chem 7: 02/13/20 05:14 02/13/20 05:14 Labs: Laboratory Results - last 24 hr 02/14/20 02/14/20 02/14/20 12:25 15:35 20:12 POC Glucose 128 H 177 H 87 02/15/20 07:51 POC Glucose 125 H
[2020-02-15 14:52] VITALS: BP 150/72
== END 2020-02-15 15:30 | disposition home or self-care (01) | DRG 872 ==
LOC: ED 12:26 → 3A 18:03
PROVIDERS: ADMIT Internal Medicine; ATTEND Internal Medicine
DX: A41.9 Sepsis, unspecified organism (principal); A09 Infectious gastroenteritis and colitis, unspecified; I10 Essential (primary) hypertension; E11.9 Type 2 diabetes mellitus without complications; Z83.3 Family history of diabetes mellitus; Z82.49 Family history of ischemic heart disease and other diseases of the circulatory system; Z90.710 Acquired absence of both cervix and uterus; E78.2 Mixed hyperlipidemia; Z79.82 Long term (current) use of aspirin; Z90.49 Acquired absence of other specified parts of digestive tract
CPT/HCPCS: 36415; 74174; 74177; 80053; 81025; 82140; 82962; 85025; 86850; 86900; 86901; 87040; G0378; A9270-GY; J0692; J1170; J2270; J2405; J7030; J7050; Q9967

== ENCOUNTER 2021-11-02 08:41 | Outpatient (CLI) | payer MEDICARE ==
[2021-11-02 12:58] LABS: Chol/HDL Ratio 3.25 %
== END 2021-11-02 08:42 | disposition home or self-care (01) ==
LOC: LABHHL 08:41
PROVIDERS: ATTEND Internal Medicine
DX: E11.9 Type 2 diabetes mellitus without complications (principal); D51.9 Vitamin B12 deficiency anemia, unspecified; I10 Essential (primary) hypertension; E78.5 Hyperlipidemia, unspecified
CPT/HCPCS: 36415; 80061; 82607; 83036